=== PATIENT | female | born 1965 | race Caucasian/White ===

== ENCOUNTER 2019-09-01 13:23 | Emergency (ER) | payer OTHER, SELFPAY ==
[2019-09-01 13:40] VITALS: BP 136/75; PULSE 103; RESP 18; TEMP 36.8; O2SAT 98
--- NOTE | 2019-09-01 13:49 | ED.MEDCLEAR ---
HPI - Medical Clearance General Chief complaint: Medical Clearance Stated complaint: med clearance for long term (possible FB) Time Seen by Provider: 09/01/19 13:45 Source: patient and RN notes reviewed Mode of arrival: other (police escort) Limitations: no limitations History of Present Illness HPI Narrative: Pt is a 54 y/o female who presents to the ED via police escort with c/o medical clearance evaluation. She notes that she received an imaging scan of her ABD/Pelvis while at [facility] this afternoon, which appeared to show signs of air/fluid in her pelvis. Pt denies placing any drugs or other substances into her vagina or anus. She does reports BLE edema starting yesterday as well as recent erythema behind her prosthetic rt eye. MD complaint: medical clearance requested Reason for Medical Clearance: laboratory abnormality (abnormal CT of ABD/Pelvis) Traumatic Symptoms: denies traumatic injury Associated Symptoms: other (BLE edema; erythema behind prosthetic rt eye) Related Information Allergies Allergy/AdvReac Type Severity Reaction Status Date / Time Penicillins Allergy Unknown Verified 09/01/19 13:54 Review of Systems Review of Systems: Narrative: CONSTITUTIONAL: Denies fever, chills, or sweats. CARDIOVASCULAR: Denies chest pain or palpitations. Reports BLE edema. GASTROINTESTINAL: Denies abdominal pain, nausea, vomiting, or diarrhea. GENITOURINARY: Denies dysuria or hematuria. SKIN: Denies itching. Reports erythema behind prosthetic rt eye. All systems reviewed & are unremarkable except as noted in HPI and below PMFSH Past Medical History Medical History Prosthetic eye globe rt eye Surgical History Surgical History Hx of eye surgery removal of rt eye Social History Social History Smoking status: Unknown if ever smoked Gender identity (if verbalized by the patient): Female Exam Narrative: Exam Narrative: GENERAL: Well-appearing, well-nourished, and in no acute distress. HEAD: Normocephalic, atraumatic. EYES: Pupil is 2+ on lt. Rt eye is prosthetic. Discharge on rt eyelid. ENT: Nares clear, no rhinorrhea or epistaxis. Mucous membranes moist. NECK: Supple. CHEST: Clear to auscultation. No respiratory distress. HEART: Regular rate and rhythm. No murmur heard. Normal peripheral pulses. ABDOMEN: Soft, nontender, nondistended, normal active bowel sounds. [employer]/: Labia majora and minora normal without lesions. Vagina without blood. No foreign body. No adnexal tenderness or fullness bilaterally No discharge present. EXTREMITIES: Normal range of motion. No edema. SKIN: Warm, dry, no rash. NEURO: No focal deficits. Alert and oriented. Course Course Emergency Course: Patient presented for evaluation of medical clearance. There is no pelvic foreign body found on exam. Patient denies any foreign body in the rectum. She denies any pain. She has had some increased discharge from her right prosthetic eye and some redness of the orbit, which we will prescribe an antibiotic for. Patient was then discharged back to law enforcement custody as she has no other complaints and is otherwise medically clear. Vital Signs Vital signs: Vital Signs Temperature 36.8 C 09/01/19 13:40 Pulse Rate 103 H 09/01/19 13:40 Respiratory Rate 18 09/01/19 13:40 Blood Pressure 136/75 09/01/19 13:40 Pulse Oximetry 98 09/01/19 13:40 Temperature 36.8 C 09/01/19 13:40 Pulse Rate 103 H 09/01/19 13:40 Respiratory Rate 18 09/01/19 13:40 Blood Pressure 136/75 09/01/19 13:40 Pulse Oximetry 98 09/01/19 13:40 Discharge Plan Discharge Clinical Impression: No foreign body found on evaluation Patient Disposition: Home, Self-Care Condition: Stable Instructions: Normal Exam (ED) Additional Instructions: There was no foreign body found on evaluation. You are
== END 2019-09-01 14:01 ==
PROVIDERS: Emergency Provider Emergency Medicine
DX: Z04.89 Encounter for examination and observation for other specified reasons (principal)
CPT/HCPCS: 99283